=== PATIENT | male | born 1990 | race Hispanic/Latino ===

== ENCOUNTER 2022-03-01 14:45 | Inpatient (IN) | payer OTHER ==
[~2022-03-01] VITALS: Ht 170.2 cm; Wt 94.7 kg
[2022-03-01 17:47] LABS: HEMATOCRIT 44.2 % (42.0-52.0); HEMOGLOBIN 14.6 g/dl (13.5-17.5); MEAN CORPUSCULAR HEMOGLOBIN 29.4 pg (27.0-33.0); MEAN CORPUSCULAR VOLUME 88.9 fl (80.0-96.0); PLATELET COUNT, AUTOMATED 269 10^3/uL (150-450); RED BLOOD COUNT 4.97 10^6/uL (4.30-6.10); WHITE BLOOD COUNT 9.9 10^3/uL (4.0-10.0)
[2022-03-01 17:48] LABS: RSV AMPLIFICATION NEGATIVE (NEGATIVE)
[2022-03-01 17:53] LABS: AMPHETAMINES LEVEL URINE NEGATIVE (NEGATIVE); BARBITURATES URINE NEGATIVE (NEGATIVE); BENZODIAZEPINES URINE POSITIVE (NEGATIVE); CANNABINOIDS URINE NEGATIVE (NEGATIVE); COCAINE METABOLITE URINE NEGATIVE (NEGATIVE); METHADONE URINE NEGATIVE (NEGATIVE); OPIATES URINE NEGATIVE (NEGATIVE); PHENCYCLIDINE URINE NEGATIVE (NEGATIVE)
[2022-03-01 18:01] LABS: ACETAMINOPHEN LEVEL < 2.0 UG/ML (10.0-30.0); ALBUMIN 3.7 GM/DL (3.2-5.2); ALT/SGPT 18 U/L (12-78); BILIRUBIN,DIRECT < 0.1 MG/DL (0.0-0.2); BILIRUBIN,TOTAL 0.1 MG/DL (0.2-1.0); BLOOD UREA NITROGEN 16 MG/DL (7-18); CALCIUM LEVEL 8.9 MG/DL (8.5-10.1); CARBON DIOXIDE LEVEL 23 MEQ/L (21-32); CHLORIDE LEVEL 109 MEQ/L (98-107); CREATININE FOR GFR 1.14 MG/DL (0.70-1.30); ETHYL ALCOHOL (ETHANOL) < 0.003 % (0.000-0.010); GLOMERULAR FILTRATION RATE > 60.0 (>60); GLUCOSE, FASTING 91 MG/DL (70-100); SALICYLATE LEVEL < 1.7 MG/DL (5.0-30.0); SODIUM LEVEL 138 MEQ/L (136-145); TOTAL PROTEIN 6.7 GM/DL (6.4-8.2)
[2022-03-01] MEDS ORDERED: SERO1TAB3 PO (21:53)
[2022-03-01] MEDS ORDERED: PATIENT COMMENT (21:53)
[2022-03-01] MEDS ORDERED: BUSP10TA PO (21:53)
[2022-03-02] MEDS ORDERED: LORazepam 2 MG TAB PO STA (19:30)
[2022-03-02] MEDS ORDERED: QUEtiapine FUMARATE 25 MG TAB PO ONE (19:35)
[2022-03-02] MEDS ORDERED: busPIRone 10 MG TAB PO ONE (19:35)
[2022-03-03] MEDS ORDERED: NALT50TA4 PO (15:16)
[2022-03-03] MEDS: QUEtiapine FUMARATE 25 MG TAB PO SCH (20:51)
[2022-03-03] MEDS: busPIRone 10 MG TAB PO SCH (20:51)
[2022-03-04] MEDS: QUEtiapine FUMARATE 25 MG TAB PO SCH (09:23)
[2022-03-04] MEDS: busPIRone 10 MG TAB PO SCH ×2 (09:23→20:41)
[2022-03-04] MEDS ORDERED: QUET1TAB17 PO (10:12)
[2022-03-04] MEDS ORDERED: HOME MED LIST COMPLETE! XX SCH (10:15)
[2022-03-04] MEDS ORDERED: PATIENT COMMENT (10:15)
[2022-03-04] MEDS: NALTREXONE 50 MG TAB PO SCH (12:16)
[2022-03-04 13:12] LABS: RSV AMPLIFICATION NEGATIVE (NEGATIVE)
[2022-03-04] MEDS ORDERED: ACETAMINOPHEN TAB 650MG DOSE (2X325MG) PO PRN ×2 (16:10→16:20)
[2022-03-04] MEDS ORDERED: traZODone 50 MG TAB PO PRN (16:10)
[2022-03-04] MEDS ORDERED: MOM 30ML SUSPENSION UDC PO PRN ×2 (16:10→16:20)
[2022-03-04] MEDS ORDERED: NICOTINE 21MG/24HR 1 EA TRANSDERMAL TD PRN (16:10)
[2022-03-04] MEDS ORDERED: MAALOX 30 ML SUSP *UDC PO PRN ×2 (16:10→16:20)
[2022-03-04 18:05] VITALS: BP 142/95
[2022-03-04] MEDS: QUEtiapine FUMARATE 50MG TAB PO SCH (20:41)
[2022-03-05 06:51] VITALS: BP 107/59
[2022-03-05] MEDS: NALTREXONE 50 MG TAB PO SCH (09:10)
[2022-03-05] MEDS: busPIRone 10 MG TAB PO SCH ×2 (09:10→20:34)
[2022-03-05] MEDS: QUEtiapine FUMARATE 50MG TAB PO SCH ×2 (09:10→20:34)
[2022-03-05 18:09] VITALS: BP 132/81
[2022-03-05] MEDS: hydrOXYzine 50 MG TAB PO SCH ×2 (18:13→23:57)
[2022-03-05] MEDS: PROPRANOLOL 10 MG TAB PO SCH (20:34)
[2022-03-06] MEDS: hydrOXYzine 50 MG TAB PO SCH ×3 (05:53→17:03)
[2022-03-06 06:29] VITALS: BP 111/55
[2022-03-06] MEDS: QUEtiapine FUMARATE 50MG TAB PO SCH ×2 (08:37→20:34)
[2022-03-06] MEDS: busPIRone 10 MG TAB PO SCH ×2 (08:37→20:34)
[2022-03-06] MEDS: VENLAFAXINE **XR** 37.5 MG CAPSULE PO SCH (08:38)
[2022-03-06] MEDS: NALTREXONE 50 MG TAB PO SCH (08:38)
[2022-03-06] MEDS: PROPRANOLOL 10 MG TAB PO SCH ×3 (08:38→20:34)
[2022-03-06 10:28] LABS: CHOLESTEROL RISK RATIO 4.275 (<5)
[2022-03-06 17:50] VITALS: BP 119/81
[2022-03-07] MEDS: hydrOXYzine 50 MG TAB PO SCH ×4 (00:19→17:47)
[2022-03-07 07:02] VITALS: BP 108/65
[2022-03-07] MEDS: NALTREXONE 50 MG TAB PO SCH (08:23)
[2022-03-07] MEDS: QUEtiapine FUMARATE 50MG TAB PO SCH ×2 (08:23→20:29)
[2022-03-07] MEDS: PROPRANOLOL 10 MG TAB PO SCH ×3 (08:23→20:29)
[2022-03-07] MEDS: busPIRone 10 MG TAB PO SCH ×2 (08:23→20:29)
[2022-03-07] MEDS: VENLAFAXINE **XR** 37.5 MG CAPSULE PO SCH (08:23)
[2022-03-07 18:18] VITALS: BP 116/65
[2022-03-07] MEDS: PRAZOSIN 1 MG CAP PO SCH (20:29)
[2022-03-08] MEDS: hydrOXYzine 50 MG TAB PO SCH ×4 (00:06→18:59)
[2022-03-08 06:23] VITALS: BP 101/51
[2022-03-08] MEDS: VENLAFAXINE **XR** 75MG CAPSULE PO SCH (08:40)
[2022-03-08] MEDS: NALTREXONE 50 MG TAB PO SCH (08:40)
[2022-03-08] MEDS: busPIRone 10 MG TAB PO SCH ×2 (08:43→20:30)
[2022-03-08] MEDS: QUEtiapine FUMARATE 50MG TAB PO SCH ×2 (08:43→20:30)
[2022-03-08] MEDS: PROPRANOLOL 10 MG TAB PO SCH ×3 (09:00→20:30)
[2022-03-08 10:12] VITALS: BP 103/65
[2022-03-08 19:03] VITALS: BP 110/64
[2022-03-08] MEDS: PRAZOSIN 1 MG CAP PO SCH (20:31)
[2022-03-08] MEDS: traZODone 50 MG TAB PO PRN (22:24)
[2022-03-09] MEDS: hydrOXYzine 50 MG TAB PO SCH ×5 (06:27→23:58)
[2022-03-09 06:44] VITALS: BP 97/55
[2022-03-09] MEDS: NALTREXONE 50 MG TAB PO SCH (08:44)
[2022-03-09] MEDS: VENLAFAXINE **XR** 75MG CAPSULE PO SCH (08:44)
[2022-03-09] MEDS: busPIRone 10 MG TAB PO SCH ×2 (08:44→20:08)
[2022-03-09] MEDS: QUEtiapine FUMARATE 50MG TAB PO SCH ×2 (08:44→20:07)
[2022-03-09] MEDS: PROPRANOLOL 10 MG TAB PO SCH ×3 (08:44→20:07)
[2022-03-09] MEDS: PRAZOSIN 1 MG CAP PO SCH (20:07)
[2022-03-10] MEDS: hydrOXYzine 50 MG TAB PO SCH ×4 (05:42→23:55)
[2022-03-10 06:31] VITALS: BP 102/57
[2022-03-10] MEDS: VENLAFAXINE **XR** 75MG CAPSULE PO SCH (08:09)
[2022-03-10] MEDS: NALTREXONE 50 MG TAB PO SCH (08:09)
[2022-03-10] MEDS: PROPRANOLOL 10 MG TAB PO SCH ×3 (08:09→20:16)
[2022-03-10] MEDS: busPIRone 10 MG TAB PO SCH ×2 (08:09→20:15)
[2022-03-10] MEDS: QUEtiapine FUMARATE 50MG TAB PO SCH ×2 (08:09→20:16)
[2022-03-10 08:44] VITALS: BP 115/72
[2022-03-10 19:59] VITALS: BP 134/80
[2022-03-10] MEDS: PRAZOSIN 1 MG CAP PO SCH (20:15)
[2022-03-10] MEDS: traZODone 50 MG TAB PO PRN (22:12)
[2022-03-11] MEDS: hydrOXYzine 50 MG TAB PO SCH ×4 (05:19→23:44)
[2022-03-11 06:29] VITALS: BP 108/63
[2022-03-11] MEDS: QUEtiapine FUMARATE 50MG TAB PO SCH ×2 (09:23→20:30)
[2022-03-11] MEDS: busPIRone 10 MG TAB PO SCH ×2 (09:24→20:30)
[2022-03-11] MEDS: NALTREXONE 50 MG TAB PO SCH (09:24)
[2022-03-11] MEDS: VENLAFAXINE **XR** 75MG CAPSULE PO SCH (09:24)
[2022-03-11] MEDS: PROPRANOLOL 10 MG TAB PO SCH ×3 (09:25→20:26)
[2022-03-11] MEDS: NICOTINE 21MG/24HR 1 EA TRANSDERMAL TD PRN (09:28)
[2022-03-11 17:01] VITALS: BP 108/63
[2022-03-11] MEDS: PRAZOSIN 1 MG CAP PO SCH (20:30)
[2022-03-11] MEDS: traZODone 50 MG TAB PO PRN (23:03)
[2022-03-12] MEDS: hydrOXYzine 50 MG TAB PO SCH ×3 (05:44→18:11)
[2022-03-12 06:15] VITALS: BP 120/62
[2022-03-12] MEDS: VENLAFAXINE **XR** 75MG CAPSULE PO SCH (08:49)
[2022-03-12] MEDS: busPIRone 10 MG TAB PO SCH ×2 (08:49→20:26)
[2022-03-12] MEDS: QUEtiapine FUMARATE 50MG TAB PO SCH ×2 (08:49→20:26)
[2022-03-12] MEDS: NALTREXONE 50 MG TAB PO SCH (08:49)
[2022-03-12] MEDS: PROPRANOLOL 10 MG TAB PO SCH ×3 (08:49→20:27)
[2022-03-12] MEDS: NICOTINE 21MG/24HR 1 EA TRANSDERMAL TD PRN (08:52)
[2022-03-12] MEDS ORDERED: PILL CUTTER 1 EACH XX PRN (11:30)
[2022-03-12] MEDS ORDERED: VENLAFAXINE **XR** 75MG CAPSULE PO ONE (11:30)
[2022-03-12] MEDS ORDERED: MINI1CAP PO (11:33)
[2022-03-12] MEDS ORDERED: CLON0.5T2 PO (11:33)
[2022-03-12] MEDS ORDERED: QUET50TA4 PO (11:33)
[2022-03-12] MEDS ORDERED: TRAZ-252 PO (11:33)
[2022-03-12] MEDS ORDERED: VENL75CA47 PO (11:33)
[2022-03-12] MEDS ORDERED: NICO21PAT TD (11:33)
[2022-03-12] MEDS ORDERED: PROP10TA56 PO (11:33)
[2022-03-12] MEDS: clonazePAM 0.5 MG TAB PO SCH ×2 (11:57→20:24)
[2022-03-12 17:04] VITALS: BP 116/60
[2022-03-12] MEDS: PRAZOSIN 1 MG CAP PO SCH (20:26)
[2022-03-12 20:27] VITALS: BP 136/82
[2022-03-12] MEDS: traZODone 50 MG TAB PO PRN (22:50)
[2022-03-13] MEDS: hydrOXYzine 50 MG TAB PO SCH (00:17)
[2022-03-13] MEDS ORDERED: VENLAFAXINE **XR** 75MG CAPSULE PO SCH (09:00)
== END 2022-03-13 04:00 | disposition home or self-care (01) | DRG 885 ==
LOC: M ED 14:45 → M ED INP 03-04 16:18 → M PSY 03-04 18:02
PROVIDERS: ADMIT Psychiatry & Neurology Psychiatry; ATTEND Student in an Organized Health Care Education/Training Program
DX: F32.1 Major depressive disorder, single episode, moderate (principal); R45.851 Suicidal ideations; F41.0 Panic disorder [episodic paroxysmal anxiety]; F43.10 Post-traumatic stress disorder, unspecified; F10.20 Alcohol dependence, uncomplicated; G47.00 Insomnia, unspecified; Z63.5 Disruption of family by separation and divorce; Z91.51 Personal history of suicidal behavior; F17.210 Nicotine dependence, cigarettes, uncomplicated; Z20.822 Contact with and (suspected) exposure to COVID-19

== ENCOUNTER 2022-04-15 06:32 | Inpatient (IN) | payer OTHER ==
[~2022-04-15] VITALS: Ht 177.8 cm; Wt 87.8 kg
[~2022-04-15 06:32] MED LIST: BUSP10TA PO; CLON0.5T2 PO; MINI1CAP PO; NALT50TA4 PO; NICO21PAT TD; PATIENT COMMENT; PROP10TA56 PO; QUET1TAB17 PO; QUET50TA4 PO; SERO1TAB3 PO; TRAZ-252 PO; VENL75CA47 PO
[2022-04-15 07:01] LABS: HEMATOCRIT 46.1 % (42.0-52.0); HEMOGLOBIN 15.3 g/dl (13.5-17.5); MEAN CORPUSCULAR HEMOGLOBIN 28.7 pg (27.0-33.0); MEAN CORPUSCULAR HGB CONC 33.2 g/dl (32.0-36.5); MEAN CORPUSCULAR VOLUME 86.5 fl (80.0-96.0); PLATELET COUNT, AUTOMATED 270 10^3/uL (150-450); RED BLOOD COUNT 5.33 10^6/uL (4.30-6.10); WHITE BLOOD COUNT 12.3 10^3/uL (4.0-10.0)
[2022-04-15 07:33] LABS: RSV AMPLIFICATION NEGATIVE (NEGATIVE)
[2022-04-15 07:43] LABS: AMPHETAMINES LEVEL URINE NEGATIVE (NEGATIVE); BARBITURATES URINE NEGATIVE (NEGATIVE); BENZODIAZEPINES URINE NEGATIVE (NEGATIVE); CANNABINOIDS URINE NEGATIVE (NEGATIVE); COCAINE METABOLITE URINE NEGATIVE (NEGATIVE); METHADONE URINE NEGATIVE (NEGATIVE); OPIATES URINE NEGATIVE (NEGATIVE); PHENCYCLIDINE URINE NEGATIVE (NEGATIVE)
[2022-04-15 07:46] LABS: ACETAMINOPHEN LEVEL < 2.0 UG/ML (10.0-30.0); ALBUMIN 3.8 GM/DL (3.2-5.2); ALT/SGPT 26 U/L (12-78); BILIRUBIN,DIRECT < 0.1 MG/DL (0.0-0.2); BILIRUBIN,TOTAL 0.2 MG/DL (0.2-1.0); BLOOD UREA NITROGEN 24 MG/DL (7-18); CALCIUM LEVEL 8.7 MG/DL (8.5-10.1); CARBON DIOXIDE LEVEL 23 MEQ/L (21-32); CHLORIDE LEVEL 111 MEQ/L (98-107); CREATININE FOR GFR 1.15 MG/DL (0.70-1.30); ETHYL ALCOHOL (ETHANOL) < 0.003 % (0.000-0.010); GLOMERULAR FILTRATION RATE > 60.0 (>60); GLUCOSE, FASTING 99 MG/DL (70-100); POTASSIUM SERUM 3.9 MEQ/L (3.5-5.1); SALICYLATE LEVEL 1.9 MG/DL (5.0-30.0); SODIUM LEVEL 139 MEQ/L (136-145); TOTAL PROTEIN 6.9 GM/DL (6.4-8.2)
[2022-04-15] MEDS ORDERED: PRAZ1CAP PO (11:20)
[2022-04-15] MEDS ORDERED: CLON0.25 PO (11:20)
[2022-04-15] MEDS ORDERED: PROP10TA56 PO (11:20)
[2022-04-15] MEDS ORDERED: TRAZ-252 PO (11:24)
[2022-04-15] MEDS ORDERED: QUET50TA4 PO (11:24)
[2022-04-15] MEDS ORDERED: VENL75TA2 PO (11:24)
[2022-04-15] MEDS ORDERED: HOME MED LIST COMPLETE! XX SCH (11:25)
[2022-04-15] MEDS ORDERED: clonazePAM 0.5 MG TAB PO SCH (11:45)
[2022-04-15] MEDS ORDERED: clonazePAM 0.5 MG TAB PO PRN (11:46)
[2022-04-15] MEDS: PROPRANOLOL 10 MG TAB PO SCH ×2 (16:19→21:14)
[2022-04-15] MEDS ORDERED: traZODone 50 MG TAB PO SCH (21:00)
[2022-04-15] MEDS ORDERED: PRAZOSIN 1 MG CAP PO SCH (21:00)
[2022-04-15] MEDS: QUEtiapine FUMARATE 50MG TAB PO SCH (21:13)
[2022-04-16] MEDS: QUEtiapine FUMARATE 50MG TAB PO SCH ×2 (08:35→20:39)
[2022-04-16] MEDS: PROPRANOLOL 10 MG TAB PO SCH ×4 (08:35→20:40)
[2022-04-16] MEDS ORDERED: VENLAFAXINE 37.5 MG TAB PO SCH ×2 (09:00)
[2022-04-16] MEDS ORDERED: MAALOX 30 ML SUSP *UDC PO PRN (13:45)
[2022-04-16] MEDS ORDERED: MOM 30ML SUSPENSION UDC PO PRN (13:45)
[2022-04-16] MEDS ORDERED: VENL75CA47 PO (13:59)
[2022-04-16] MEDS ORDERED: IBUPROFEN 400MG TAB PO PRN (14:00)
[2022-04-16 15:27] VITALS: BP 103/71
[2022-04-16] MEDS: clonazePAM 0.5 MG TAB PO PRN (18:14)
[2022-04-16] MEDS: traZODone 50 MG TAB PO SCH (20:39)
[2022-04-16] MEDS: PRAZOSIN 1 MG CAP PO SCH (20:39)
[2022-04-17 06:42] VITALS: BP 110/66
[2022-04-17] MEDS ORDERED: VENLAFAXINE **XR** 75MG CAPSULE PO SCH (09:00)
[2022-04-17] MEDS: QUEtiapine FUMARATE 50MG TAB PO SCH ×2 (10:04→20:29)
[2022-04-17] MEDS: NICOTINE 21MG/24HR 1 EA TRANSDERMAL TD PRN (10:04)
[2022-04-17] MEDS: PROPRANOLOL 10 MG TAB PO SCH ×3 (10:05→20:28)
[2022-04-17] MEDS: clonazePAM 0.5 MG TAB PO PRN (15:42)
[2022-04-17 18:13] VITALS: BP 124/72
[2022-04-17] MEDS: PRAZOSIN 1 MG CAP PO SCH (20:28)
[2022-04-17] MEDS: traZODone 50 MG TAB PO SCH (20:29)
[2022-04-18 06:32] VITALS: BP 124/94
[2022-04-18] MEDS: NICOTINE 21MG/24HR 1 EA TRANSDERMAL TD PRN (08:03)
[2022-04-18] MEDS: PROPRANOLOL 10 MG TAB PO SCH ×3 (08:03→20:44)
[2022-04-18] MEDS: VENLAFAXINE **XR** 75MG CAPSULE PO SCH (08:03)
[2022-04-18] MEDS: clonazePAM 0.5 MG TAB PO PRN (08:06)
[2022-04-18] MEDS ORDERED: ARIPiprazole 2 MG TAB PO SCH (09:00)
[2022-04-18 17:57] VITALS: BP 128/80
[2022-04-18] MEDS: ARIPiprazole 2 MG TAB PO SCH (20:44)
[2022-04-18] MEDS: QUEtiapine FUMARATE 50MG TAB PO SCH (20:44)
[2022-04-18] MEDS: traZODone 50 MG TAB PO SCH (20:44)
[2022-04-18] MEDS: PRAZOSIN 1 MG CAP PO SCH (20:44)
[2022-04-18] MEDS: busPIRone 10 MG TAB PO SCH (20:44)
[2022-04-19 06:32] VITALS: BP 146/92
[2022-04-19] MEDS: VENLAFAXINE **XR** 75MG CAPSULE PO SCH (10:30)
[2022-04-19] MEDS: NICOTINE 21MG/24HR 1 EA TRANSDERMAL TD PRN (10:30)
[2022-04-19] MEDS: busPIRone 10 MG TAB PO SCH ×2 (10:30→20:31)
[2022-04-19] MEDS: PROPRANOLOL 10 MG TAB PO SCH ×3 (10:31→20:31)
[2022-04-19] MEDS: clonazePAM 0.5 MG TAB PO PRN (14:20)
[2022-04-19 18:03] VITALS: BP 119/67
[2022-04-19] MEDS: ARIPiprazole 2 MG TAB PO SCH (20:31)
[2022-04-19] MEDS: QUEtiapine FUMARATE 50MG TAB PO SCH (20:31)
[2022-04-19] MEDS: PRAZOSIN 1 MG CAP PO SCH (20:31)
[2022-04-19] MEDS: traZODone 50 MG TAB PO SCH (20:31)
[2022-04-20 06:41] VITALS: BP 107/58
[2022-04-20] MEDS: NICOTINE 21MG/24HR 1 EA TRANSDERMAL TD PRN (09:45)
[2022-04-20] MEDS: PROPRANOLOL 10 MG TAB PO SCH ×3 (09:46→20:43)
[2022-04-20] MEDS: VENLAFAXINE **XR** 75MG CAPSULE PO SCH (09:46)
[2022-04-20] MEDS: busPIRone 10 MG TAB PO SCH ×2 (09:46→20:42)
[2022-04-20 18:31] VITALS: BP 118/70
[2022-04-20] MEDS: clonazePAM 0.5 MG TAB PO PRN (19:35)
[2022-04-20] MEDS: traZODone 50 MG TAB PO SCH (20:42)
[2022-04-20] MEDS: ARIPiprazole 2 MG TAB PO SCH (20:42)
[2022-04-20] MEDS: PRAZOSIN 1 MG CAP PO SCH (20:43)
[2022-04-20] MEDS: QUEtiapine FUMARATE 50MG TAB PO SCH (20:43)
[2022-04-21 06:41] VITALS: BP 122/70
[2022-04-21] MEDS: busPIRone 10 MG TAB PO SCH ×2 (09:15→21:02)
[2022-04-21] MEDS: PROPRANOLOL 10 MG TAB PO SCH ×3 (09:15→21:02)
[2022-04-21] MEDS: VENLAFAXINE **XR** 75MG CAPSULE PO SCH (09:15)
[2022-04-21] MEDS: NICOTINE 21MG/24HR 1 EA TRANSDERMAL TD PRN (09:15)
[2022-04-21 18:00] VITALS: BP 119/67
[2022-04-21] MEDS: QUEtiapine FUMARATE 50MG TAB PO SCH (21:02)
[2022-04-21] MEDS: ARIPiprazole 2 MG TAB PO SCH (21:02)
[2022-04-21] MEDS: PRAZOSIN 1 MG CAP PO SCH (21:02)
[2022-04-21] MEDS: traZODone 50 MG TAB PO SCH (21:02)
[2022-04-22 06:39] VITALS: BP 134/75
[2022-04-22] MEDS: clonazePAM 0.5 MG TAB PO PRN (09:47)
[2022-04-22] MEDS: busPIRone 10 MG TAB PO SCH ×2 (09:48→21:15)
[2022-04-22] MEDS: NICOTINE 21MG/24HR 1 EA TRANSDERMAL TD PRN (09:48)
[2022-04-22] MEDS: VENLAFAXINE **XR** 75MG CAPSULE PO SCH (09:48)
[2022-04-22] MEDS: PROPRANOLOL 10 MG TAB PO SCH ×3 (09:50→21:15)
[2022-04-22 16:27] VITALS: BP 124/64
[2022-04-22] MEDS: PRAZOSIN 1 MG CAP PO SCH (21:15)
[2022-04-22] MEDS: traZODone 50 MG TAB PO SCH (21:16)
[2022-04-22] MEDS: QUEtiapine FUMARATE 50MG TAB PO SCH (21:16)
[2022-04-23 06:46] VITALS: BP 109/57
[2022-04-23] MEDS: busPIRone 10 MG TAB PO SCH ×2 (09:04→20:44)
[2022-04-23] MEDS: VENLAFAXINE **XR** 75MG CAPSULE PO SCH (09:04)
[2022-04-23] MEDS: PROPRANOLOL 10 MG TAB PO SCH (09:12)
[2022-04-23] MEDS: PILL CUTTER 1 EACH XX PRN (11:31)
[2022-04-23] MEDS: clonazePAM 0.5 MG TAB PO SCH ×2 (11:31→20:45)
[2022-04-23] MEDS: NICOTINE 21MG/24HR 1 EA TRANSDERMAL TD PRN (11:32)
[2022-04-23 17:00] VITALS: BP 131/72
[2022-04-23] MEDS: QUEtiapine FUMARATE 50MG TAB PO SCH (20:44)
[2022-04-23] MEDS: traZODone 50 MG TAB PO SCH (20:44)
[2022-04-23] MEDS: PRAZOSIN 1 MG CAP PO SCH (20:45)
[2022-04-24 06:51] VITALS: BP 112/58
[2022-04-24] MEDS: PILL CUTTER 1 EACH XX PRN (10:05)
[2022-04-24] MEDS: NICOTINE 21MG/24HR 1 EA TRANSDERMAL TD PRN (10:05)
[2022-04-24] MEDS: busPIRone 10 MG TAB PO SCH ×2 (10:06→20:21)
[2022-04-24] MEDS: clonazePAM 0.5 MG TAB PO SCH ×2 (10:06→20:22)
[2022-04-24] MEDS: VENLAFAXINE **XR** 75MG CAPSULE PO SCH (10:07)
[2022-04-24 16:33] VITALS: BP 123/60
[2022-04-24] MEDS: QUEtiapine FUMARATE 50MG TAB PO SCH (20:21)
[2022-04-24] MEDS: traZODone 50 MG TAB PO SCH (20:21)
[2022-04-24] MEDS: PRAZOSIN 1 MG CAP PO SCH (20:22)
[2022-04-25 06:38] VITALS: BP 107/61
[2022-04-25] MEDS: PILL CUTTER 1 EACH XX PRN ×2 (08:17→20:20)
[2022-04-25] MEDS: NICOTINE 21MG/24HR 1 EA TRANSDERMAL TD PRN (08:17)
[2022-04-25] MEDS: VENLAFAXINE **XR** 75MG CAPSULE PO SCH (08:18)
[2022-04-25] MEDS: busPIRone 10 MG TAB PO SCH ×2 (08:18→20:21)
[2022-04-25] MEDS: clonazePAM 0.5 MG TAB PO SCH ×2 (08:20→20:21)
[2022-04-25 18:50] VITALS: BP 114/58
[2022-04-25] MEDS: traZODone 50 MG TAB PO SCH (20:21)
[2022-04-25] MEDS: QUEtiapine FUMARATE 50MG TAB PO SCH (20:21)
[2022-04-25] MEDS: PRAZOSIN 1 MG CAP PO SCH (20:21)
[2022-04-26 05:47] VITALS: BP 112/64
[2022-04-26] MEDS: clonazePAM 0.5 MG TAB PO SCH ×2 (09:02→20:06)
[2022-04-26] MEDS: PILL CUTTER 1 EACH XX PRN (09:02)
[2022-04-26] MEDS: busPIRone 10 MG TAB PO SCH ×2 (09:03→20:05)
[2022-04-26] MEDS: VENLAFAXINE **XR** 75MG CAPSULE PO SCH (09:03)
[2022-04-26] MEDS: NICOTINE 21MG/24HR 1 EA TRANSDERMAL TD PRN (09:04)
[2022-04-26] MEDS ORDERED: VENL75CA47 PO (13:20)
[2022-04-26] MEDS ORDERED: ABIL1TAB11 PO (13:20)
[2022-04-26] MEDS ORDERED: QUET50TA4 PO (13:20)
[2022-04-26 16:15] VITALS: BP 144/62
[2022-04-26] MEDS: traZODone 50 MG TAB PO SCH (20:05)
[2022-04-26] MEDS: QUEtiapine FUMARATE 50MG TAB PO SCH (20:05)
[2022-04-26] MEDS: PRAZOSIN 1 MG CAP PO SCH (20:05)
[2022-04-27 06:41] VITALS: BP 106/64
[2022-04-27] MEDS: NICOTINE 21MG/24HR 1 EA TRANSDERMAL TD PRN (09:47)
[2022-04-27] MEDS: busPIRone 10 MG TAB PO SCH ×2 (09:48→20:31)
[2022-04-27] MEDS: VENLAFAXINE **XR** 75MG CAPSULE PO SCH (09:49)
[2022-04-27] MEDS: clonazePAM 0.5 MG TAB PO SCH ×2 (09:50→20:30)
[2022-04-27 16:16] VITALS: BP_SYST 129; BP_SYST 146; BP_DIAS 63; BP_DIAS 70
[2022-04-27] MEDS: PRAZOSIN 1 MG CAP PO SCH (20:30)
[2022-04-27] MEDS: traZODone 50 MG TAB PO SCH (20:31)
[2022-04-27] MEDS: QUEtiapine FUMARATE 50MG TAB PO SCH (20:31)
[2022-04-28 06:27] VITALS: BP 124/68
[2022-04-28] MEDS: PILL CUTTER 1 EACH XX PRN (07:42)
[2022-04-28] MEDS: clonazePAM 0.5 MG TAB PO SCH ×2 (07:42→20:09)
[2022-04-28] MEDS: busPIRone 10 MG TAB PO SCH ×2 (07:43→20:08)
[2022-04-28] MEDS: NICOTINE 21MG/24HR 1 EA TRANSDERMAL TD PRN (07:43)
[2022-04-28] MEDS: VENLAFAXINE **XR** 75MG CAPSULE PO SCH (07:43)
[2022-04-28 16:04] VITALS: BP 114/66
[2022-04-28 20:09] VITALS: BP 148/73
[2022-04-28] MEDS: QUEtiapine FUMARATE 50MG TAB PO SCH (20:09)
[2022-04-28] MEDS: PRAZOSIN 1 MG CAP PO SCH (20:09)
[2022-04-28] MEDS: traZODone 50 MG TAB PO SCH (20:09)
[2022-04-29 06:12] VITALS: BP 133/75
[2022-04-29] MEDS: VENLAFAXINE **XR** 75MG CAPSULE PO SCH (09:30)
[2022-04-29] MEDS: busPIRone 10 MG TAB PO SCH (09:30)
[2022-04-29] MEDS: clonazePAM 0.5 MG TAB PO SCH (09:30)
[2022-04-29] MEDS: PILL CUTTER 1 EACH XX PRN (09:32)
[2022-04-29] MEDS: NICOTINE 21MG/24HR 1 EA TRANSDERMAL TD PRN (11:42)
== END 2022-04-29 14:09 | DRG 881 ==
LOC: M ED 06:32 → M ED INP 04-16 13:28 → M PSY 04-16 15:24
PROVIDERS: ADMIT Student in an Organized Health Care Education/Training Program; ATTEND Student in an Organized Health Care Education/Training Program
DX: F32.9 Major depressive disorder, single episode, unspecified (principal); R45.851 Suicidal ideations; F41.0 Panic disorder [episodic paroxysmal anxiety]; F43.10 Post-traumatic stress disorder, unspecified; F10.10 Alcohol abuse, uncomplicated; Z79.899 Other long term (current) drug therapy